=== PATIENT | female | born 1975 | race Hispanic/Latino ===

== ENCOUNTER 2024-08-04 09:25 | Emergency (ER) | payer MEDICAID ==
[~2024-08-04 09:25] MED LIST: BACL20TA PO; FISH1CAP50 PO; GABA-1405 PO; MIRALAX PO; PRIMADONE PO; VIT C PO; VITA; ZINC220C6 PO; [UNRECOGNIZED DRUG - OTHER] PO
--- NOTE | 2024-08-04 11:09 | ERN ---
General Chief Complaint: GTube Replancement/Malfunction Stated Complaint: G TUBE MALFUNCTION Time Seen by MD: 10:00 Time Seen by Midlevel: 10:00 Source: other ([facility] staff) History of Present Illness Initial Comments Patient is a nonverbal 49-year-old female being brought in by intermediate staff for a PEG tube evaluation. According to intermediate staff the PEG tube became dislodged yesterday. They were able to clamp down. Patient has had multiple episodes of vomiting so they decided to bring her in for further evaluation. No fever, diarrhea, or any other symptoms reported at this time. Allergies: Coded Allergies: No Known Drug Allergies (Unverified Allergy, Unknown, 07/17/15) Home Meds Reported Medications [Primadone] No Conflict Check, 125 MG PO TID 07/17/15 [Promod Protien] No Conflict Check, 30 ML PO TID 07/17/15 Zinc Sulfate (Zinc Sulfate 220 Cap) 220 Mg Capsule, 220 MG PO BID, CAP 07/17/15 [Miralax] No Conflict Check, 1 PKT PO DAILY 07/17/15 Alex-3 Fatty Acids/Fish Oil (Alex 3 Fish Oil Softgel) 1 Each Capsule.dr, 1 EACH PO DAILY, CAP 07/17/15 [Vit C] No Conflict Check, 500 MG PO BID 07/17/15 [Yane] No Conflict Check 07/17/15 Baclofen (Baclofen) 20 Mg Tablet, 20 MG PO Q6H, TAB 07/17/15 Gabapentin (Gabapentin) 600 Mg Tablet, 600 MG PO BID, TAB 07/17/15 Past Medical History Past Medical History: Seizure Medical History Other: CEREBRAL PALSY Past Surgical History: Other ROS Dictation CONSTITUTIONAL: Negative except for HPI HEAD/FACE: Negative except for HPI EENT: Negative except for HPI RESPIRATORY: Negative except for HPI GASTROINTESTINAL/ABDOMINAL: Negative except for HPI GENITOURINARY: Negative except for HPI MUSCULOSKELETAL: Negative except for HPI INTEGUMENTARY: Negative except for HPI NEUROLOGICAL/PSYCH: Negative except for HPI HEMATOLOGIC/LYMPHATIC: Negative except for HPI All Systems Negative, Except as noted above. 13 point review of systems assessed and all negative except for above. Physical Exam Physical Exam Dictation Vital Signs reviewed General Appearance: Alert, nonverbal, no acute distress Head and Face: non-traumatic. Eyes: PERRL, pink conjunctivas, eyelid no trauma, anterior chamber with arcus senilis. Ears: Pinnas intact and no signs of trauma or erythema ear canals clear and no discharge TM no erythema Chest:No tenderness, no crepitus, no paradoxical movement, no retractions Lungs:Clear, well-ventilated, symmetric, no rales, no wheezing, no rhonchi, no stridor, good breath sounds bilaterally Heart: Regular rate, regular rhythm, no murmur, no gallops Vascular: no peripheral edema, Abdomen: Soft, positive bowel sounds, nondistended, no guarding, Peg tube in place with no signs of infection, no rebound, no masses no hepatomegaly, no splenomegaly, no Costello's sign, no hernias. Rectal: Deferred Genital: Deferred Neurological: Neurologically at baseline Musculoskeletal: Neck nontender, full range of motion, back nontender, full range of motion, Extremities: nontender, full range of motion Skin: Color pink, dry, no turgor, no rash, no lacerations, no abrasions, no contusions. Lymphatic: Deferred Results Laboratory and Microbiology Lab and Micro Result Laboratory Tests Test 08/04/24 11:19 White Blood Count 10.3 K/uL (4.8-10.8) Red Blood Count 4.61 MIL/uL (4.00-5.50) Hemoglobin 13.6 g/dL (12.0-16.0) Hematocrit 40.5 % (36-48) Mean Corpuscular Volume 87.9 fL (79-99) Mean Corpuscular Hemoglobin 29.5 pg (27.0-33.0) Mean Corpuscular Hemoglobin Concent 33.6 g/dL (32.0-36.0) Red Cell Distribution Width 13.6 % (11.0-15.5) Platelet Count 360 K/uL (130-400) Mean Platelet Volume 11.4 fL (7.5-10.5) H Immature Granulocyte % (Auto) 0.3 % (0-1) Neutrophils (%) (Auto) 90.8 % (40.0-77.0) H Lymphocytes (%) (Auto) 5.6 % (21.0-51.0) L Monocytes (%) (Auto) 3.2 % (3.0-13.0) Eosinophils (%) (Auto) 0.0 % (0.0-8.0) Basophils (%) (Auto) 0.1 % (0.0-5.0) Neutrophils # (Auto) 9.3 K/uL (1.8-7.7) H Lymphocytes # (Auto) 0.6 K/uL (1.0-4.8) L Monocytes # (Auto) 0.3 K/uL (0.1-1.0) Eosinophils # (Auto) 0.00 K/uL (0.00-0.70) Basophils # (Auto) 0.01 K/uL (0.00-0.20) Absolute Immature Granulocyte (auto 0.03 K/uL (0-1) Nucleated Red Blood Cells 0.0 % (0.0-0.19) White Cell Morphology Comment See comments Sodium Level 135 mmol/L (136-145) L Potassium Level 3.5 mmol/L (3.5-5.1) Chloride Level 96 mmol/L (101-111) L Carbon Dioxide Level 27 mmol/L (21-32) Blood Urea Nitrogen 14 mg/dL (7-18) Creatinine 0.7 mg/dL (0.5-1.0) Glomerular Filtration Rate Calc 107 mL/min (>90) Random Glucose 126 mg/dL (70-105) H Total Calcium 9.5 mg/dL (8.5-10.1) Total Bilirubin 0.1 mg/dL (0.2-1.0) L Direct Bilirubin 0.1 mg/dL (0.0-0.3) Aspartate Amino Transf (AST/SGOT) 33 U/L (10-37) Alanine Aminotransferase (ALT/SGPT) 58 U/L (12-78) Alkaline Phosphatase 143 U/L (50-136) H Total Protein 7.5 g/dL (6.0-8.3) Albumin 3.3 g/dL (3.5-5.0) L Lipase 29 U/L (16-77) 2:05 p.m.. There was a delay in obtaining CT scan of the abdomen and pelvis with contrast due to patient/caregiver not signing consent for contrast. Labs Reviewed?: Yes MDM MDM: Patient is a nonverbal 49-year-old female being brought in by intermediate staff for a PEG tube evaluation. According to intermediate staff the PEG tube became dislodged yesterday. They were able to clamp down. Patient has had multiple episodes of vomiting so they decided to bring her in for further evaluation. No fever, diarrhea, or any other symptoms reported at this time. Physical examination patient is in no acute distress. She is neurologically at baseline. She was a PEG tube in place with no signs of infection however the she reports in of the PEG tube appears to be broken. Given that patient has been having multiple episodes of vomiting in the intermediate a CT scan of the abdomen and pelvis was ordered to rule out a small-bowel obstruction versus cholecystitis versus pancreatitis. CT scan does not show any acute intra- abdominal pathology. The PEG tube was successfully replaced with no complications. A Gastrografin study was ordered which confirms placement of the PEG tube. There was a 3 hour delay in obtaining consent for CT with contrast due to nurse being busy with other patients. However, the PEG tube was successfully replaced and patient was observed in the ER for multiple hours where she remained asymptomatic. Patient will be discharged back to intermediate. Differential diagnosis: Peg tube malfunction, small-bowel obstruction, pancreatitis, cholecystitis There are no social concerns with this patient. Prescription drug management Prescriptions will include: None Medical management and examination interpretation discussions were had by me with other qualified healthcare professionals as indicated for the patient's care. ED Course Orders Procedure Category Date Status Time Cbc With Differential LAB 08/04/24 Complete 10:52 Basic Metabolic Panel LAB 08/04/24 Complete 10:52 Lipase LAB 08/04/24 Complete 10:52 Hepatic Function Panel LAB 08/04/24 Complete 10:52 Ct Abdomen/Pelvis CT 08/04/24 Resulted W/Contrast 10:52 Iohexol (Omnipaque) PHA 08/04/24 Complete 13:42 *Nursing CPOE 08/04/24 Transmitted Communication: 14:46 Abd 1vw RAD 08/04/24 Resulted 15:43 Diatr PHA 08/04/24 Complete Meglu/Diatrizoate 15:55 Current Medications Medications (Trade) Dose Ordered Sig/Monik Route PRN Reason Start Time Stop Time Status Last Admin Dose Admin Diatrizoate Meglum/ Diatrizoate Sod (Gastrografin 66-10 Solution) 30 ml STK-MED ONCE .ROUTE 08/04/24 15:55 08/04/24 15:56 DC Iohexol (Omnipaque) 75 ml STK-MED ONCE IV 08/04/24 13:42 08/04/24 13:43 DC Vital Signs Date Time Temp Pulse Resp B/P (MAP) Pulse Ox O2 Delivery O2 Flow Rate FiO2 08/04/24 17:42 97.7 68 14 118/70 98 Room Air* 0 21 08/04/24 11:37 98.1 82 18 107/67 99 Room Air* 0 21 08/04/24 09:26 98.1 82 18 107/67 99 Room Air 0 [facility] [address] [place] [address] IMAGING REPORT Signed PATIENT: ANNIA CALIX MR#: [id number] : 1975 SEX: F AGE: 49 LOCATION: [facility] ORDER 105 STATUS: REG ER REPORT#: [id number] SERVICE 1052 REASON: dislodged peg tube ORDERING PHYSICIAN: GENESIS GRIFFITH PROCEDURE: ABD PEL W - CT ABDOMEN/PELVIS W/CONTRAST CT ABDOMEN/PELVIS W/CONTRAST HISTORY: Dislodged G-tube COMPARISON: None TECHNIQUE: Multiple sequential axial images of the abdomen and pelvis were obtained from the dome of the diaphragm through symphysis pubis. Patient was not given contrast through intravenous route. Oral contrast was not given. FINDINGS: No pleural effusion is seen bilaterally. There is no evidence of parenchymal disease or pulmonary nodule of the visualized lower lungs. Degenerative changes of the thoracolumbar spine are present. The heart is not enlarged. PEG tube is seen with distal tip in the stomach. The liver, spleen, adrenal glands and pancreas are unremarkable. There is no evidence of hydronephrosis bilaterally. No evidence of renal stone is seen. Fecal material is seen in the colon. There are normal size retroperitoneal and mesenteric lymph nodes. No ascites is seen. Appendix is not seen limiting evaluation. Pelvic sidewalls are symmetric bilaterally. Bladder is well distended without wall thickening. IMPRESSION: 1. PEG tube is seen with distal tip in the stomach. No ascites is seen. CT was performed with one or more following dose reduction techniques: automated exposure control, adjustment of the mA and kv according to patient's size, or use of a iterative reconstruction technique. DICTATED BY: SAHIL CAVANAUGH MD DATE: 08/04/24 1407 ELECTRONICALLY SIGNED BY: SAHIL CAVANAUGH MD DATE: 08/04/24 1410 [facility] [address] [place] [id number] IMAGING REPORT Signed PATIENT: ANNIA CALIX MR#: [id number] : 1975 SEX: F AGE: 49 LOCATION: [facility] ORDER [id number] STATUS: REG ER REPORT#: [id number] SERVICE 1543 REASON: peg tube replacement ORDERING PHYSICIAN: GENESIS GRIFFITH PROCEDURE: ABD 1VW - ABD 1VW ABD 1VW HISTORY: PEG tube placement COMPARISON: None FINDINGS: A frontal projection of the abdomen was obtained. Contrast was given through PEG tube with opacification of stomach. No extravasation of contrast is seen. PEG tube is seen with distal tip in the stomach. A nonspecific bowel gas pattern is seen. Fecal material is seen in the colon. Degenerative changes of the thoracolumbar spine are noted. IMPRESSION: 1. A nonspecific bowel gas pattern is seen. DICTATED BY: SAHIL CAVANAUGH MD DATE: 08/04/24 1638 ELECTRONICALLY SIGNED BY: SAHIL CAVANAUGH MD DATE: 08/04/24 1641 DX & DISP Disposition: Discharge Departure Impression: Primary Impression: Malfunction of gastrostomy tube Condition: Stable Additional Instructions: Your PEG tube was successfully replaced. CT scan of the abdomen and pelvis does not reveal any acute abnormalities. Your blood work today is unremarkable. Referrals: LUIS ULRICH (PCP) Time of Disposition: 17:11 I have reviewed the case, and I agree with, Diagnosis and Plan I performed the substantive portion of the visit. I have reviewed and personally made and approve the management plan that is documented in the note by myself or the [facility]. I acknowledge for responsibility for the patient's management plan. GENESIS GRIFFITH Aug 04, 2024 11:09 JEANMARIE RIVERA DO Aug 05, 2024 07:58
[2024-08-04 11:28] LABS: BASOPHILS # (AUTO) 0.01 K/uL (0.00-0.20); BASOPHILS % (AUTO) 0.1 % (0.0-5.0); HEMATOCRIT 40.5 % (36-48); IMMATURE GRANULOCYTE ABSOLUTE 0.03 K/uL (0-1); LYMPHOCYTES # (AUTO) 0.6 K/uL (1.0-4.8); LYMPHOCYTES % (AUTO) 5.6 % (21.0-51.0); MEAN CORPUSCULAR HEMOGLOBIN 29.5 pg (27.0-33.0); MEAN CORPUSCULAR HGB CONC 33.6 g/dL (32.0-36.0); MEAN CORPUSCULAR VOLUME 87.9 fL (79-99); MONOCYTES # (AUTO) 0.3 K/uL (0.1-1.0); MONOCYTES % (AUTO) 3.2 % (3.0-13.0); NEUTROPHILS # (AUTO) 9.3 K/uL (1.8-7.7); NEUTROPHILS % (AUTO) 90.8 % (40.0-77.0); PLATELET COUNT (AUTO) 360 K/uL (130-400); RED BLOOD CELL COUNT(AUTO) 4.61 MIL/uL (4.00-5.50); RED CELL DISTRIBUTION WIDTH 13.6 % (11.0-15.5); WHITE BLOOD COUNT (AUTO) 10.3 K/uL (4.8-10.8)
[2024-08-04 11:32] LABS: CREATININE 0.7 mg/dL (0.5-1.0); POTASSIUM 3.5 mmol/L (3.5-5.1)
[2024-08-04 11:36] LABS: ALBUMIN 3.3 g/dL (3.5-5.0); BILIRUBIN,DIRECT 0.1 mg/dL (0.0-0.3); BILIRUBIN,TOTAL 0.1 mg/dL (0.2-1.0); TOTAL PROTEIN, SERUM 7.5 g/dL (6.0-8.3)
[2024-08-04] MEDS ORDERED: IOHEXOL-350 75 ML VIAL IV ONE (13:42)
--- NOTE | 2024-08-04 14:10 | HMCIMG ---
CT ABDOMEN/PELVIS W/CONTRAST HISTORY: Dislodged G-tube COMPARISON: None TECHNIQUE: Multiple sequential axial images of the abdomen and pelvis were obtained from the dome of the diaphragm through symphysis pubis. Patient was not given contrast through intravenous route. Oral contrast was not given. FINDINGS: No pleural effusion is seen bilaterally. There is no evidence of parenchymal disease or pulmonary nodule of the visualized lower lungs. Degenerative changes of the thoracolumbar spine are present. The heart is not enlarged. PEG tube is seen with distal tip in the stomach. The liver, spleen, adrenal glands and pancreas are unremarkable. There is no evidence of hydronephrosis bilaterally. No evidence of renal stone is seen. Fecal material is seen in the colon. There are normal size retroperitoneal and mesenteric lymph nodes. No ascites is seen. Appendix is not seen limiting evaluation. Pelvic sidewalls are symmetric bilaterally. Bladder is well distended without wall thickening. IMPRESSION: 1. PEG tube is seen with distal tip in the stomach. No ascites is seen. CT was performed with one or more following dose reduction techniques: automated exposure control, adjustment of the mA and kv according to patient's size, or use of a iterative reconstruction technique.
[2024-08-04] MEDS ORDERED: DIATR MEGLU/DIATRIZOATE SODIUM 30 ML BOTTLE ONE (15:55)
--- NOTE | 2024-08-04 16:41 | HMCIMG ---
ABD 1VW HISTORY: PEG tube placement COMPARISON: None FINDINGS: A frontal projection of the abdomen was obtained. Contrast was given through PEG tube with opacification of stomach. No extravasation of contrast is seen. PEG tube is seen with distal tip in the stomach. A nonspecific bowel gas pattern is seen. Fecal material is seen in the colon. Degenerative changes of the thoracolumbar spine are noted. IMPRESSION: 1. A nonspecific bowel gas pattern is seen.
[2024-08-04 17:42] VITALS: BP 118/70; PULSE 68; RESP 14; TEMP 97.7; O2SAT 98
== END 2024-08-04 17:44 | disposition home or self-care (01) ==
LOC: EDH 09:25
DX: K94.23 Gastrostomy malfunction (principal); Z79.899 Other long term (current) drug therapy
CPT/HCPCS: 99284; 74177; 43762; 80076; 80048; 83690; 85025; 36415; 74018; Q9963; Q9967